=== PATIENT | male | born 1960 | race Caucasian/White ===

== ENCOUNTER 2022-02-03 09:15 | Emergency (ER) | payer MEDICAID, SELFPAY ==
[2022-02-03 09:24] VITALS: BP 161/105; PULSE 75; RESP 18; TEMP 36.3; O2SAT 96; BMI 27.8
--- NOTE | 2022-02-03 09:44 | CRLHL7_ITS ---
For Patients: As a result of the Century Cures Act, medical imaging exams and procedure reports are released immediately into your electronic medical record. You may view this report before your referring provider. If you have questions, please contact your health care provider. INDICATION: Cough COMPARISON: None TECHNIQUE: PA and lateral views of the chest were acquired FINDINGS: TUBES AND LINES: None. HEART AND MEDIASTINUM: The heart size is normal. The mediastinal contour appears normal for patient age. LUNGS AND PLEURAL SPACES: Hyperinflated but otherwise unremarkable appearing lungs without acute focal finding.The pleural spaces are unremarkable. OSSEOUS STRUCTURES: Age-appropriate appearance. No acute focal finding. IMPRESSION: Hyperinflated but otherwise unremarkable appearing lungs without acute focal findings. Dictated by Dima Oliveros MD @ 02/03/2022 10:02:11 AM (Electronically Signed)
--- NOTE | 2022-02-03 10:04 | ED.GENADULT ---
HPI - General Adult General Time Seen by Provider: 09:35 Date Seen: 02/03/22 Chief complaint: Cough Stated complaint: bronchitis/needs meds Time Seen by Provider: 02/03/22 09:36 Source: patient and RN notes reviewed Mode of arrival: ambulatory Limitations: no limitations History of Present Illness HPI narrative: The patient is a very pleasant 61-year-old retired [place] who comes to the emergency room for evaluation regarding ongoing cough as well as concerns regarding inability to refill some of his medications. Patient notes ongoing cough for the past 4 weeks. It is intermittently productive and seems to be getting worse. Occasionally he does have green sputum. He denies chest pain or a fever or sore throat. Patient notes that he is here at [facility] and has had challenges getting some of his prescriptions. He is currently out of his albuterol inhaler, escitalopram as well as ibuprofen. He would like to start and establish with the [facility] but has been unsuccessful getting an appointment thus far. Patient denies abdominal pain or any other complaints today. Related Data Home Medications Medication Instructions Recorded Confirmed acetaminophen 500 mg tablet 1,000 mg PO Q8H PRN 02/03/22 02/03/22 albuterol sulfate 90 mcg/actuation 2 inh INHALATION Q6H PRN 02/03/22 02/03/22 aerosol inhaler budesonide-formoterol HFA 160 2 inh INHALATION Q12H 02/03/22 02/03/22 mcg-4.5 mcg/actuation aerosol inhaler calcium carbonate 200 mg calcium 500 mg PO Q6H PRN 02/03/22 02/03/22 (500 mg) chewable tablet (Antacid (calcium carbonate)) carboxymethylcellulose sodium 0.5 2 drp OPHTHALMIC (EYE) BID PRN 02/03/22 02/03/22 % eye drops (Refresh Tears) epinephrine 0.3 mg/0.3 mL 0.3 ml IM Q24H PRN 02/03/22 02/03/22 injection, auto-injector escitalopram oxalate 10 mg tablet 10 mg PO DAILY 02/03/22 02/03/22 fluticasone propionate 50 2 spray INTRANASAL DAILY PRN 02/03/22 02/03/22 mcg/actuation nasal spray,suspension gabapentin 400 mg capsule 800 mg PO TID 02/03/22 02/03/22 guafenesin tablet 02/03/22 ibuprofen 600 mg tablet 600 mg PO Q8H PRN 02/03/22 02/03/22 melatonin 3 mg capsule 9 mg PO HS 02/03/22 02/03/22 mirtazapine 30 mg disintegrating 30 mg PO DAILY 02/03/22 02/03/22 tablet omeprazole 20 mg tablet,delayed 20 mg PO BID 02/03/22 02/03/22 release simvastatin 20 mg tablet 20 mg PO DAILY 02/03/22 02/03/22 thiamine HCl (vitamin B1) 100 mg 100 mg PO DAILY 02/03/22 02/03/22 tablet Previous Rx's Medication Instructions Recorded albuterol sulfate 90 mcg/actuation 2 puff INHALATION Q6H PRN #8.5 g 02/03/22 aerosol inhaler azithromycin 250 mg tablet 250 mg PO DAILY #6 tab 02/03/22 (Zithromax Z-Austen) escitalopram oxalate 10 mg tablet 10 mg PO DAILY #14 tab 02/03/22 ibuprofen 600 mg tablet 600 mg PO Q8H PRN #30 tab 02/03/22 Allergies Allergy/AdvReac Type Severity Reaction Status Date / Time Fish Containing Products Allergy Verified 02/03/22 09:34 Penicillins Allergy Anaphylaxis Verified 02/03/22 09:34 shellfish derived Allergy hives Verified 02/03/22 09:34 venom-honey bee Allergy Verified 02/03/22 09:34 Review of Systems Narrative: No sore throat, shortness of breath, chest pain. No vomiting, nausea, abdominal pain PFSH PFSH Social History Smoking Status: Current every day smoker What tobacco products do you use: cigarettes Do you use any of these nicotine containing products: None Second hand tobacco smoke exposure: No How often do you have a drink containing alcohol: never How many standard drinks containing alcohol do you have on a typical day: 1 or 2 AUDIT-C Alcohol total score: 0 Non-prescribed substance use: denies use service: Yes Exam Narrative: Exam Narrative: Past medical history: Alcohol abuse currently in treatment and would [facility] on [facility] History of hepatitis C History of NIKOLE History of COPD History of hypertension History of GERD on omeprazole History of hyperlipidemia History of bipolar disorder and anxiety Social history: Tobacco use. Trying to cut down from 1 pack with goal of going to a half pack a day. Const: Vital Signs, click to edit/add: Vital Signs - 24 hr 02/03/22 09:24 Temperature 97.3 F L Pulse Rate [Left P ulse Oximeter] 75 Respiratory Rate 18 Blood Pressure [Ri ght Upper Arm] 161/105 H Pulse Oximetry 96 Patient is alert and oriented and in no acute distress. Oral cavity with moist mucous membranes. Neck is supple no lymphadenopathy. Heart with regular rate and rhythm. Lungs are with a few crackles in the left lower lung base otherwise clear. Abdomen soft nontender. Ambulating without difficulty. Documenting provider has reviewed patient's vital signs: yes Course Course Hospital Course: At this time will have patient go to Radiology for chest x-ray. Will also refill meds as we attempt to get patient an appointment at [facility]. Vital Signs Vital signs: Initial Vital Signs Temperature 97.3 F L 02/03/22 09:24 Temperature Source Temporal Artery Scan 02/03/22 09:24 Pulse Rate 75 02/03/22 09:24 Respiratory Rate 18 02/03/22 09:24 Blood Pressure 161/105 H 02/03/22 09:24 Blood Pressure Mean 123 02/03/22 09:24 Blood Pressure Position Sitting 02/03/22 09:24 Pulse Oximetry 96 02/03/22 09:24 Oxygen Delivery Method 02/03/22 09:24 Vital Signs Temperature 97.3 F L 02/03/22 09:24 Pulse Rate 75 02/03/22 09:24 Respiratory Rate 18 02/03/22 09:24 Blood Pressure 161/105 H 02/03/22 09:24 Pulse Oximetry 96 02/03/22 09:24 Temperature 97.3 F L 02/03/22 09:24 Pulse Rate 75 02/03/22 09:24 Respiratory Rate 18 02/03/22 09:24 Blood Pressure 161/105 H 02/03/22 09:24 Pulse Oximetry 96 02/03/22 09:24 Medical Decision Making MDM Narrative Medical decision making narrative: 1. Bronchitis-patient has a reassuring chest x-ray. Four weeks of cough in a smoker with occasional green production at this time suggest need for antibiotic. Patient is not wheezing nor is he hypoxic at this time so hold off on any steroid treatment. Seek medical attention for worsening symptoms. Zithromax 500 mg today followed by 250 mg daily for 4 days. 2. Out of his medications-will refill the escitalopram, ibuprofen and albuterol inhaler. I will sign standing orders but asked that any further questions go through a primary physician at the [facility]. 3. Disposition-patient is discharged. His records were reviewed. Standing orders are signed but I asked that any further questions go through his primary physician which will establish with next week. Medical Records Medical records reviewed: Yes I reviewed the patient's medical records Medical records narrative: [facility] Imaging Data Chest x-ray: Attestation: I have reviewed the pertinent imaging results. My impression: Chronic lung markings by my read. Radiologist's impression: No acute findings Discharge Plan Discharge Clinical Impression: Bronchitis Patient Disposition: Home, Self-Care Condition: Improved Additional Instructions: Start Z-Austen as soon as possible. Use your albuterol as directed. Restart your escitalopram. Refills for albuterol, escitalopram, ibuprofen 800 mg and Z-Austen is sent to [facility]. See appointment to establish care at the [facility] next week. Return as needed for worsening symptoms. Follow up appointment scheduled at the [facility] on 02/09 with a 12:40pm arrival time. [address] [place] [address] Activity Level: No Restrictions Prescriptions: New azithromycin [Zithromax Z-Austen] 250 mg tablet 250 mg PO DAILY Qty: 6 0RF Taper: Z-AUSTEN 500 mg Q24H for 1 Day and 0 Hour 250 mg Q24H for 4 Days and 0 Hour Rx Instructions: 250 mg PO; escitalopram oxalate 10 mg tablet 10 mg PO DAILY Qty: 14 2RF albuterol sulfate 90 mcg/actuation HFA aerosol inhaler 2 puff inhalation Q6H PRN (Reason: shortness of breath or wheezing) Qty: 8.5 0RF ibuprofen 600 mg tablet 600 mg PO Q8H PRNQty: 30 0RF No Action escitalopram oxalate 10 mg tablet 10 mg PO DAILY 0RF mirtazapine 30 mg tablet,disintegrating 30 mg PO DAILY 0RF simvastatin 20 mg tablet 20 mg PO DAILY 0RF thiamine HCl (vitamin B1) 100 mg tablet 100 mg PO DAILY 0RF omeprazole 20 mg tablet,delayed release (DR/EC) 20 mg PO BID 0RF gabapentin 400 mg capsule 800 mg PO TID 0RF acetaminophen 500 mg tablet 1,000 mg PO Q8H PRN0RF albuterol sulfate 90 mcg/actuation HFA aerosol inhaler 2 inh inhalation Q6H PRN0RF budesonide-formoterol 160-4.5 mcg/actuation HFA aerosol inhaler 2 inh inhalation Q12H 0RF calcium carbonate [Antacid (calcium carbonate)] 200 mg calcium (500 mg) tablet,chewable 500 mg PO Q6H PRN0RF epinephrine 0.3 mg/0.3 mL auto-injector 0.3 ml IM Q24H PRN0RF Rx Instructions: do not exceed 3 doses per episode fluticasone propionate 50 mcg/actuation spray,suspension 2 spray intranasal DAILY PRN0RF Rx Instructions: administer into each nostril guafenesin tablet 0RF ibuprofen 600 mg tablet 600 mg PO Q8H PRN0RF carboxymethylcellulose sodium [Refresh Tears] 0.5 % drops 2 drp ophthalmic (eye) BID PRN0RF melatonin 3 mg capsule 9 mg PO HS 0RF Stand Alone Forms: MyHealth Info Instructions
== END 2022-02-03 10:30 | disposition home or self-care (01) ==
PROVIDERS: Emergency Provider Family Medicine
DX: J40 Bronchitis, not specified as acute or chronic (principal); Z72.0 Tobacco use
CPT/HCPCS: 71046; 99283; 99284